=== PATIENT | female | born 1935 | race Caucasian/White ===

== ENCOUNTER 2017-12-06 03:50 | Inpatient (IN) | payer OTHER ==
[~2017-12-06] VITALS: Ht 160 cm; Wt 72.5 kg
[2017-12-06 07:13] LABS: BASOPHIL (%) 0.3 % (0-1); EOSINOPHIL (%) 0.5 % (0-5); EOSINOPHIL COUNT 0.1 K/uL (0-0.3); HEMATOCRIT 29.1 % (36.0-46.0); HEMOGLOBIN 9.3 G/DL (11.9-15.5); IMMATURE GRANULOCYTE (%) 0.6 % (0.0-0.7); LYMPHOCYTE (%) 10.1 % (15-42); LYMPHOCYTE COUNT 1.3 K/uL (1.0-2.8); MCH 28.7 PG (29.0-34.0); MCV 89.8 FL (83-99); MONOCYTE (%) 5.3 % (3-12); MONOCYTE COUNT 0.7 K/uL (0-0.8); NEUTROPHIL (%) 83.2 % (45-76); NEUTROPHIL COUNT 10.3 K/uL (1.8-6.4); PLATELET COUNT 275 K/uL (156-360); RBC DIS.WIDTH-CV 13.1 % (11.8-14.6); RBC DIS.WIDTH-SD 43.5 % (39-53); RED BLOOD COUNT 3.24 M/uL (3.80-5.20); WHITE BLOOD COUNT 12.4 K/uL (4.1-10.2)
[2017-12-06 07:42] LABS: CHLORIDE 103 MEQ/L (99-109); CREATININE 1.6 MG/DL (0.6-1.3); GFR ESTIMATE (CALCULATED) 33 mL/min/; GLUCOSE 160 mg/dL (70-99); POTASSIUM 4.3 MEQ/L (3.7-5.4); SODIUM 138 MEQ/L (136-147); UREA NITROGEN (BUN) 39 mg/dL (9-23)
[2017-12-06 07:46] LABS: TROP-I INTERPRETATION POSITIVE; TROPONIN-I 4.75 ng/mL (0.0-0.30)
[2017-12-06] MEDS ORDERED: AMLODIPINE BESYL5 MG PO (08:18)
[2017-12-06] MEDS ORDERED: GEMFIBROZIL600 MG PO (08:18)
[2017-12-06] MEDS ORDERED: LEVEMIR FL100 UNIT/1 SC (08:18)
[2017-12-06] MEDS ORDERED: LEVOTHYROXINE50 MCG PO (08:18)
[2017-12-06] MEDS ORDERED: FORTAMET1000 M1 PO (08:19)
[2017-12-06] MEDS ORDERED: LYRICA75 MG PO (08:19)
[2017-12-06] MEDS ORDERED: ESOMEPRAZOLE MA40 MG PO (08:20)
[2017-12-06] MEDS ORDERED: NITROFURANTOIN100 M3 PO (08:48)
[2017-12-06] MEDS ORDERED: INVANZ1 GM IM (08:48)
[2017-12-06] MEDS ORDERED: LOSARTAN POTASS50 MG PO (08:49)
[2017-12-06 10:30] VITALS: BP 165/81
[2017-12-06 14:30] LABS: TROP-I INTERPRETATION POSITIVE; TROPONIN-I 2.75 ng/mL (0.0-0.30)
[2017-12-06 14:55] VITALS: BP 153/68
[2017-12-06 19:00] VITALS: BP 149/65
[2017-12-06 19:20] LABS: TROP-I INTERPRETATION POSITIVE
[2017-12-06 19:22] LABS: TROPONIN-I 2.97 ng/mL (0.0-0.30)
[2017-12-06 23:00] VITALS: BP 141/62
[2017-12-07 04:00] VITALS: BP 139/64
[2017-12-07 04:17] LABS: HEMATOCRIT 28.7 % (36.0-46.0); HEMOGLOBIN 9.4 G/DL (11.9-15.5); MCH 29.2 PG (29.0-34.0); MCHC 32.8 G/DL (30.0-36.0); MCV 89.1 FL (83-99); PLATELET COUNT 266 K/uL (156-360); RBC DIS.WIDTH-CV 13.2 % (11.8-14.6); RBC DIS.WIDTH-SD 43.3 % (39-53); RED BLOOD COUNT 3.22 M/uL (3.80-5.20); WHITE BLOOD COUNT 13.3 K/uL (4.1-10.2)
[2017-12-07 04:23] LABS: CHLORIDE 103 mEq/L (99-109); POTASSIUM 3.6 mEq/L (3.7-5.4); SODIUM 138 mEq/L (136-147)
[2017-12-07 04:29] LABS: CREATININE 1.4 mg/dL (0.6-1.3); GFR ESTIMATE (CALCULATED) 38 mL/min/; UREA NITROGEN (BUN) 40 mg/dL (9-23)
[2017-12-07 04:30] LABS: GLUCOSE 75 mg/dL (70-99)
[2017-12-07 08:08] VITALS: BP 117/56
[2017-12-07 12:00] VITALS: BP 134/62
[2017-12-07 16:05] VITALS: BP 118/58
[2017-12-07 20:53] VITALS: BP 133/60
[2017-12-08] VITALS (7 sets, daily range): BP systolic 128–152; BP diastolic 57–67
[2017-12-08 22:13] LABS: CHLORIDE 100 mEq/L (99-109); POTASSIUM 3.9 mEq/L (3.7-5.4); SODIUM 133 mEq/L (136-147)
[2017-12-08 22:14] LABS: MAGNESIUM 1.7 mg/dL (1.3-2.7)
[2017-12-08 22:19] LABS: CREATININE 1.5 mg/dL (0.6-1.3); GFR ESTIMATE (CALCULATED) 35 mL/min/
[2017-12-08 22:20] LABS: UREA NITROGEN (BUN) 32 mg/dL (9-23)
[2017-12-08 22:22] LABS: GLUCOSE 342 mg/dL (70-99)
[2017-12-09 04:00] VITALS: BP 128/61
[2017-12-09 05:32] LABS: BASOPHIL (%) 0.4 % (0-1); EOSINOPHIL (%) 2.8 % (0-5); EOSINOPHIL COUNT 0.3 K/uL (0-0.3); HEMATOCRIT 26.9 % (36.0-46.0); HEMOGLOBIN 8.7 G/DL (11.9-15.5); IMMATURE GRANULOCYTE (%) 0.6 % (0.0-0.7); LYMPHOCYTE (%) 18.4 % (15-42); LYMPHOCYTE COUNT 1.9 K/uL (1.0-2.8); MCH 28.5 PG (29.0-34.0); MCHC 32.3 G/DL (30.0-36.0); MCV 88.2 FL (83-99); MONOCYTE (%) 7.4 % (3-12); MONOCYTE COUNT 0.7 K/uL (0-0.8); NEUTROPHIL (%) 70.4 % (45-76); NEUTROPHIL COUNT 7.1 K/uL (1.8-6.4); PLATELET COUNT 286 K/uL (156-360); RBC DIS.WIDTH-CV 12.9 % (11.8-14.6); RBC DIS.WIDTH-SD 41.7 % (39-53); RED BLOOD COUNT 3.05 M/uL (3.80-5.20)
[2017-12-09 06:14] LABS: CHLORIDE 100 MEQ/L (99-109); CREATININE 1.4 MG/DL (0.6-1.3); GFR ESTIMATE (CALCULATED) 38 mL/min/; GLUCOSE 175 mg/dL (70-99); POTASSIUM 4.4 MEQ/L (3.7-5.4); SODIUM 135 MEQ/L (136-147); UREA NITROGEN (BUN) 31 mg/dL (9-23)
[2017-12-09 08:15] VITALS: BP 138/70
[2017-12-09 11:55] VITALS: BP 126/60
[2017-12-09 15:46] VITALS: BP 130/60
[2017-12-09 21:02] VITALS: BP 132/66
[2017-12-09 23:56] VITALS: BP 138/60
[2017-12-10 03:59] VITALS: BP 134/62
[2017-12-10 07:20] VITALS: BP 129/69
[2017-12-10 07:20] LABS: APPEARANCE SL.HAZY ((CLEAR)); BILIRUBIN NEGATIVE; BLOOD SMALL; COLOR YELLOW ((YELLOW)); GLUCOSE (STRIP) NEGATIVE; KETONES NEGATIVE; LEUKOCYTES MODERATE; NITRITE NEGATIVE; PROTEIN (STRIP) NEGATIVE; SPECIFIC GRAVITY 1.009 (1.000-1.030); UROBILINOGEN 0.2 MG/DL (0.2-1.0)
[2017-12-10 07:36] LABS: BACTERIA RARE /HPF; EPITHELIAL CELLS RARE /HPF; MUCUS TRACE /LPF; RED BLOOD CELLS 0-5 /HPF (0-5); UCUL ADDED? YES; WHITE BLOOD CELLS 40-50 /HPF (0-5)
[2017-12-10 11:49] VITALS: BP 130/65
[2017-12-10 17:16] VITALS: BP 132/69
[2017-12-10 19:37] VITALS: BP 136/66
[2017-12-11 00:15] VITALS: BP 138/62
[2017-12-11 05:18] LABS: HEMATOCRIT 25.4 % (36.0-46.0); HEMOGLOBIN 8.2 G/DL (11.9-15.5); MCH 28.4 PG (29.0-34.0); MCHC 32.3 G/DL (30.0-36.0); MCV 87.9 FL (83-99); PLATELET COUNT 302 K/uL (156-360); RBC DIS.WIDTH-CV 12.9 % (11.8-14.6); RBC DIS.WIDTH-SD 41.3 % (39-53); RED BLOOD COUNT 2.89 M/uL (3.80-5.20); WHITE BLOOD COUNT 10.4 K/uL (4.1-10.2)
[2017-12-11 07:29] VITALS: BP 136/82
[2017-12-11 12:02] VITALS: BP 127/64
[2017-12-11] MEDS ORDERED: LOPRESSOR25 MG PO (14:40)
[2017-12-11] MEDS ORDERED: ELIQUIS2.5 MG PO (14:40)
[2017-12-11] MEDS ORDERED: NITROSTAT0.4 MG SL (14:40)
[2017-12-11] MEDS ORDERED: ASPIR-LOW81 MG PO (14:41)
[2017-12-11] MEDS ORDERED: LEVEMIR100 UNIT/2 SC (14:43)
[2017-12-11] MEDS ORDERED: NOVOLOG 10100 UNITS/ SC (14:43)
[2017-12-11] MEDS ORDERED: MERREM1 GM IV (14:45)
== END 2017-12-11 16:32 | DRG 281 ==
LOC: EME → EDBD 03:50 → EME 03:50 → EDOF 07:27 → 4EAST 07:27 → EDOF 07:27 → ENRESERV 08:02 → 4EAST 10:25
PROVIDERS: Emergency Medicine; Hospitalist; Internal Medicine
DX: I21.A1 Myocardial infarction type 2 (principal); N39.0 Urinary tract infection, site not specified; N17.9 Acute kidney failure, unspecified; N18.3 Chronic kidney disease, stage 3 (moderate); B96.20 Unspecified Escherichia coli [E. coli] as the cause of diseases classified elsewhere; I12.9 Hypertensive chronic kidney disease with stage 1 through stage 4 chronic kidney disease, or unspecified chronic kidney disease; E03.9 Hypothyroidism, unspecified; Z90.710 Acquired absence of both cervix and uterus; I44.7 Left bundle-branch block, unspecified; J44.9 Chronic obstructive pulmonary disease, unspecified; I27.20 Pulmonary hypertension, unspecified; I48.0 Paroxysmal atrial fibrillation; E78.5 Hyperlipidemia, unspecified; M79.604 Pain in right leg; M79.89 Other specified soft tissue disorders; Z79.4 Long term (current) use of insulin; Z79.82 Long term (current) use of aspirin; Z79.899 Other long term (current) drug therapy; E11.22 Type 2 diabetes mellitus with diabetic chronic kidney disease; E11.40 Type 2 diabetes mellitus with diabetic neuropathy, unspecified; Z87.440 Personal history of urinary (tract) infections; K21.9 Gastro-esophageal reflux disease without esophagitis; D64.9 Anemia, unspecified; Z79.02 Long term (current) use of antithrombotics/antiplatelets; I05.0 Rheumatic mitral stenosis; Z16.12 Extended spectrum beta lactamase (ESBL) resistance
CPT/HCPCS: 71045; 71046; 74176; 80048; 81003; 82948; 83605; 83735; 83880; 84484; 85025; 85027; 85730; 87040; 87086; 93005; 93306; 93971; 94799; 97530 GO; 97530 GP; 99281; 99285; J1644; J1815; J1940; J2185; J2270; J7030; J7050